=== PATIENT | male | born 1960 | race Caucasian/White ===

== ENCOUNTER 2017-05-14 19:46 | Inpatient (IN) | payer OTHER ==
[~2017-05-14] VITALS: Ht 175.3 cm; Wt 84.4 kg
--- NOTE | ~2017-05-14 | HC ---
[facility] [place] [address] CONSULTATION Name: JOHNYNEO CA Room #: 409-P ADM IN M.R.#: [id number] Admission: 05/14/17 Attend Phys: Maryjane Guzman Discharge: Date of : 58 Report #: [id number] THIS REPORT FOR: //name// CC: Kadeem Guzman REASON FOR CONSULTATION: I was asked to evaluate concerning left lower extremity wound infection. HISTORY OF PRESENT ILLNESS: The patient is a 56-year-old with chronic pain syndrome with cervical and back pain. 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 He had a fair amount of bleeding. He washed it off as good as he could. He was in a dirty environment with some exposed sewage. He did come home and cleaned it off several times with peroxide. Again, yesterday washed it with peroxide. 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 Noticed increased pain, swelling, and redness, then presented to the emergency room last evening. No fever, chills, or sweats. No other systemic symptoms. Denies any cough, sputum, nausea, vomiting, or diarrhea. He was seen in the emergency room, found to have evidence of cellulitis extending up his calf. No purulent drainage. He has been placed on vancomycin. He has a history of MRSA, right prepatellar bursitis several years ago. ALLERGIES: BACITRACIN, NEOMYCIN, POLYMYXIN, and TETANUS TOXOID. MEDICATIONS: As noted on his MAR, including lithium, diazepam, Seroquel, hydrocodone, and morphine. PAST MEDICAL HISTORY: Chronic pain involving the neck and back, arthritis, rotator cuff repair, kidney stone, bipolar, hyperlipidemia, hypertension, left arm fracture, left neck fracture repair, and history of MRSA. FAMILY HISTORY: Noncontributory. SOCIAL HISTORY: Previous use of recreational drugs, smokes cigarettes, uses alcohol. REVIEW OF SYSTEMS: As noted above. PHYSICAL EXAMINATION: VITAL SIGNS: Afebrile, hemodynamically stable. GENERAL: He is alert and cooperative and pleasant, in no acute distress. CHEST: Clear. HEART: Regular. ABDOMEN: Soft. LEFT GROIN: Unremarkable. EXTREMITIES: Left lower extremity had an eschar with superficial type wound [address] [address] CONSULTATION Name: NEO MCCLAIN Room #: [address] [place] [address] IN M.R.#: [id number] Admission: 05/14/17 Attend Phys: Maryjane Guzman Discharge: Date of : 58 Report #: [id number] over the anterior aspect of his ankle. Mild surrounding erythema. No tenderness at the calf. Mild tenderness in the region. No fluctuance. No increased swelling in the foot. Pulses in the foot were normal. Sensation intact. Good capillary refill. LABORATORY STUDIES: Sodium 140, potassium 4.3, bicarbonate 26, and creatinine 1. Hemoglobin 12.2, white count 7.7, and platelet count 331,000. Sedimentation rate 16. CRP less than 2. Lactate 0.8. X-ray of the ankle unremarkable. IMPRESSION: Left ankle soft tissue injury with a superintendent electric power, now with secondary infection. Staph or strep would be most likely. He is responding to vancomycin. reasonable to switch to oral antibiotics and we will go with Zyvox. We will see how he tolerates first dose today and then proceed from there. The patient does have chronic pain issues and complicated narcotic program. Continue local wound care. <ELECTRONICALLY SIGNED> By: Stan Small MD 05/16/17 1301 [id number] Stan Small MD /nt
[~2017-05-14 19:46] MED LIST: ATORVASTATIN CA40 MG PO; CIPROFLOXACIN500 M1 PO; COLACE100 MG PO; DIAZEPAM 10 MG10 M2 PO; ERYTHROMYCIN E3.5 G3 OPHTHALMIC; FLOMAX0.4 MG PO; HYDROCODON-ACE1 EAC5 PO; HYDROCODONE-APA1 TA1 PO; HYDROXYZINE HCL25 M1 PO; IBUPROFEN 600600 M1 PO; IBUPROFEN 800800 MG PO; KEFLEX500 MG PO; LIDODERM 5%1 PATCH TOP; LITHIUM CARBON300 M3 PO; LITHIUM CARBON300 M7 PO; MEDROLDOSEPACK PO; MS CONTIN 30 MG30 M1 PO; NEURONTIN 300300 M1 PO; NORCO 5-325 TA1 EACH PO; NORFLEX100 MG PO; OXYCONTIN20 M1 PO; OXYCONTIN40 MG PO; PERCOCET 10-321 EACH PO; PERCOCET 5-3251 EACH PO; PHENERGAN 25 MG25 M1 PO; PROPRANOLOL 1010 MG PO; PYRIDIUM200 MG PO; SEROQUEL 100 M100 M1 PO; SEROQUEL 50 MG50 MG PO; ULTRAM 50MG TAB50 MG PO; VALIUM5 MG PO; ZOFRAN ODT4 MG PO
[2017-05-14 19:47] VITALS: BP 129/84
[2017-05-14 21:00] LABS: ABSOLUTE NEUTROPHILS 7.8 thou/uL (1.4-8.2); BASOPHILS 0.4 % (0.0-2.0); EOSINOPHILS 1.3 % (0.0-3.0); HEMOGLOBIN 13.9 gm/dL (14.0-18.0); LYMPHOCYTES 24.5 % (24.0-44.0); MCH 32.9 pg (26.0-34.0); MCHC 34.8 g/dL (28.0-37.0); MCV 94.7 fL (80.0-100.0); MONOCYTES 7.2 % (1.0-8.0); PLATELET COUNT 381 thou/uL (150-400); POLYS 66.6 % (36.0-66.0); RBC 4.22 mil/uL (4.50-6.00); RDW 13.7 % (10.5-14.5); WBC 11.7 thou/uL (4.0-11.0)
[2017-05-14 21:01] LABS: MANUAL DIFF NO
[2017-05-14 21:08] LABS: CALCIUM 9.6 mg/dL (8.5-10.1); POTASSIUM 4.1 mmol/L (3.5-5.1)
[2017-05-14] MEDS ORDERED: MS CONTIN15 MG PO (21:58)
[2017-05-14 22:03] VITALS: BP 116/64
[2017-05-14 22:36] VITALS: BP 116/64
[2017-05-14 22:40] VITALS: BP 183/104
[2017-05-15 00:51] VITALS: BP 124/71
[2017-05-15 04:50] VITALS: BP 100/64
[2017-05-15 07:13] LABS: HEMATOCRIT 35.8 % (42.0-52.0); HEMOGLOBIN 12.2 gm/dL (14.0-18.0); MCH 32.7 pg (26.0-34.0); MCHC 34.2 g/dL (28.0-37.0); MCV 95.6 fL (80.0-100.0); RBC 3.75 mil/uL (4.50-6.00); RDW 13.9 % (10.5-14.5); WBC 7.7 thou/uL (4.0-11.0)
[2017-05-15 07:25] LABS: CALCIUM 8.8 mg/dL (8.5-10.1); POTASSIUM 4.3 mmol/L (3.5-5.1)
[2017-05-15 08:32] VITALS: BP 104/62
[2017-05-15 16:04] VITALS: BP 119/75
[2017-05-15 19:33] VITALS: BP 143/77
[2017-05-16 03:57] VITALS: BP 110/70
[2017-05-16 06:00] LABS: ABSOLUTE NEUTROPHILS 2.6 thou/uL (1.4-8.2); BASOPHILS 0.6 % (0.0-2.0); EOSINOPHILS 2.3 % (0.0-3.0); HEMATOCRIT 39.8 % (42.0-52.0); HEMOGLOBIN 13.5 gm/dL (14.0-18.0); LYMPHOCYTES 39.5 % (24.0-44.0); MCH 32.5 pg (26.0-34.0); MCHC 33.8 g/dL (28.0-37.0); MCV 96.2 fL (80.0-100.0); MONOCYTES 10.7 % (1.0-8.0); PLATELET COUNT 334 thou/uL (150-400); POLYS 46.9 % (36.0-66.0); RBC 4.14 mil/uL (4.50-6.00); RDW 13.6 % (10.5-14.5); WBC 5.5 thou/uL (4.0-11.0)
[2017-05-16 06:07] LABS: CALCIUM 9.5 mg/dL (8.5-10.1); CREATININE 0.9 mg/dL (0.7-1.3); POTASSIUM 4.6 mmol/L (3.5-5.1)
[2017-05-16 06:11] LABS: MANUAL DIFF NO
[2017-05-16 08:00] VITALS: BP 126/71
[2017-05-16 12:29] VITALS: BP 126/71
== END 2017-05-16 13:25 | disposition home or self-care (01) | DRG 603 ==
LOC: ER 19:46 → EROBS 21:32 → 4N 23:13
PROVIDERS: Emergency Medicine; Internal Medicine Endocrinology, Diabetes & Metabolism; Nurse Practitioner Family
DX: L03.116 Cellulitis of left lower limb (principal); M54.9 Dorsalgia, unspecified; F31.9 Bipolar disorder, unspecified; M19.90 Unspecified osteoarthritis, unspecified site; F17.210 Nicotine dependence, cigarettes, uncomplicated; E78.5 Hyperlipidemia, unspecified; G89.29 Other chronic pain; I10 Essential (primary) hypertension; Z87.442 Personal history of urinary calculi; Z79.899 Other long term (current) drug therapy; Z88.1 Allergy status to other antibiotic agents; Z88.8 Allergy status to other drugs, medicaments and biological substances; Z87.81 Personal history of (healed) traumatic fracture
CPT/HCPCS: 10790

== ENCOUNTER 2018-07-12 06:21 | Emergency (ER) | payer OTHER ==
[~2018-07-12] VITALS: Ht 172.7 cm; Wt 81.7 kg
--- NOTE | ~2018-07-12 | EKG ---
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: AKSHAT : 1960 Requested By: Stan Ashley Order Number: [id number] MD: Aldo Christianson Measurements Intervals [place] Rate: 68 P: 65 AK: 152 QRS: 49 QRSD: 105 T: 48 QT: 417 QTc: 444 Interpretive Statements Sinus rhythm RSR' in V1 or V2, probably normal variant Compared to ECG 10/13/2016 17:38:50 no significant change was found Electronically Signed On 07-12-2018 9:21:11 TELEGRAPH DISPATCHER by Aldo Christianson [email or web address] <ELECTRONICALLY SIGNED> By: Aldo Christianson MD, [facility] 07/12/18 0921 D: 11/652 0653 Aldo Christianson MD, FACC /EPI
[~2018-07-12 06:21] MED LIST changes: +MS CONTIN15 MG PO
[2018-07-12 06:41] LABS: BASOPHILS 0.4 % (0.0-2.0); EOSINOPHILS 0.7 % (0.0-3.0); HEMATOCRIT 40.1 % (42.0-52.0); HEMOGLOBIN 13.9 gm/dL (14.0-18.0); LYMPHOCYTES 13.8 % (24.0-44.0); MCH 32.8 pg (26.0-34.0); MCHC 34.6 g/dL (28.0-37.0); MCV 94.8 fL (80.0-100.0); MONOCYTES 5.9 % (1.0-8.0); PLATELET COUNT 387 thou/uL (150-400); POLYS 79.2 % (36.0-66.0); RBC 4.23 mil/uL (4.50-6.00); WBC 11.3 thou/uL (4.0-11.0)
[2018-07-12 06:53] LABS: ANION GAP 7 mmol/L (7-16); BUN 24 mg/dL (7-18); CALCIUM 9.8 mg/dL (8.5-10.1); CHLORIDE 105 mmol/L (98-107); CO2 28 mmol/L (21-32); CREATININE 1.2 mg/dL (0.7-1.3); GLUCOSE 113 mg/dL (74-106); POTASSIUM 3.6 mmol/L (3.5-5.1); SODIUM 140 mmol/L (136-145)
[2018-07-12 06:56] LABS: APTT 27.2 Seconds (24.5-32.8)
[2018-07-12 07:00] LABS: ALBUMIN 3.8 g/dL (3.4-5.0); SALICYLATE 3.2 mg/dL (2.8-20.0); SGOT 28 U/L (15-37); SGPT 49 U/L (30-65); TOTAL BILIRUBIN 0.5 mg/dL (<0.1-1.0); TOTAL PROTEIN 7.4 g/dL (6.4-8.2)
[2018-07-12 07:06] LABS: AMP/METHAMP POSITIVE (Negative); BARBITURATES Negative (Negative); BENZODIAZEPINES POSITIVE (Negative); COCAINE POSITIVE (Negative); METHADONE Negative (Negative); OPIATES POSITIVE (Negative); PCP Negative (Negative)
[2018-07-12 07:13] LABS: URINE BILIRUBIN NEGATIVE (Negative); URINE BLOOD 1+ (Negative); URINE CLARITY CLEAR; URINE COLOR YELLOW; URINE GLUCOSE-RANDOM* NEGATIVE (Negative); URINE KETONES NEGATIVE (Negative); URINE LEUKOCYTES NEGATIVE (Negative); URINE NITRITE NEGATIVE (Negative); URINE PROTEIN (DIPSTICK) NEGATIVE (Negative); URINE SPECIFIC GRAVITY 1.025 (1.005-1.035); URINE UROBILINOGEN 0.2 E.U./dl (0.2-1.0)
[2018-07-12 07:21] LABS: CASTS None Seen /LPF (None Seen); SQUAMOUS 0-3 Few /LPF (0-3)
[2018-07-12 07:22] LABS: BACTERIA None Seen /HPF (None Seen); CRYSTALS None Seen /LPF (None Seen); URINE RBC 3-10 Few /HPF (0-2); URINE WBC 0-5 Rare /HPF (0-5)
[2018-07-12 08:30] VITALS: BP 108/67
== END 2018-07-12 09:32 | disposition home or self-care (01) ==
LOC: ER 06:21
PROVIDERS: Emergency Medicine
DX: S20.219A Contusion of unspecified front wall of thorax, initial encounter (principal); F14.10 Cocaine abuse, uncomplicated; F15.10 Other stimulant abuse, uncomplicated; F11.90 Opioid use, unspecified, uncomplicated; G89.4 Chronic pain syndrome; I10 Essential (primary) hypertension; E78.5 Hyperlipidemia, unspecified; V89.2XXA Person injured in unspecified motor-vehicle accident, traffic, initial encounter; Y92.89 Other specified places as the place of occurrence of the external cause; Y93.89 Activity, other specified; Y99.8 Other external cause status

== ENCOUNTER 2018-07-13 11:40 | Emergency (ER) | payer OTHER ==
[~2018-07-13] VITALS: Ht 175.3 cm; Wt 82.6 kg
[2018-07-13 13:00] VITALS: BP 122/71
== END 2018-07-13 13:00 | disposition home or self-care (01) ==
LOC: ER 11:40
DX: G89.29 Other chronic pain (principal); Z76.0 Encounter for issue of repeat prescription; F17.210 Nicotine dependence, cigarettes, uncomplicated; M54.9 Dorsalgia, unspecified; I10 Essential (primary) hypertension; E78.5 Hyperlipidemia, unspecified; F31.9 Bipolar disorder, unspecified; M19.90 Unspecified osteoarthritis, unspecified site; Z98.890 Other specified postprocedural states; Z88.1 Allergy status to other antibiotic agents; Z88.8 Allergy status to other drugs, medicaments and biological substances; Z88.7 Allergy status to serum and vaccine

== ENCOUNTER 2018-07-28 15:36 | Emergency (ER) | payer OTHER ==
[~2018-07-28] VITALS: Ht 175.3 cm; Wt 81.7 kg
--- NOTE | ~2018-07-28 | EKG ---
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 : 1960 Requested By: Minh Leon Order Number: [id number] MD: Aldo Christianson Measurements Intervals [place] Rate: 65 P: 48 [place]: 139 QRS: 36 QRSD: 101 T: 70 QT: 389 QTc: 405 Interpretive Statements Sinus rhythm RSR' in V1 or V2, probably normal variant Repolarization abnormality Compared to ECG 07/12/2018 06:53:12 No significant change was found Electronically Signed On 07-29-2018 7:49:44 WELDING MACHINE OPERATOR ELECTRON BEAM by Aldo Christianson [email or web address] <ELECTRONICALLY SIGNED> By: Aldo Christianson MD, [facility] 07/29/18 0749 1655 165 Aldo Christianson MD, [facility] /EPI
[2018-07-28] MEDS ORDERED: FLOMAX0.4 MG PO (15:50)
[2018-07-28] MEDS ORDERED: LIDODERM1 EACH TOP (17:17)
[2018-07-28 17:27] VITALS: BP 114/83
== END 2018-07-28 17:28 | disposition home or self-care (01) ==
LOC: ER 15:36
DX: S20.211A Contusion of right front wall of thorax, initial encounter (principal); F17.210 Nicotine dependence, cigarettes, uncomplicated; G89.29 Other chronic pain; M54.9 Dorsalgia, unspecified; I10 Essential (primary) hypertension; E78.5 Hyperlipidemia, unspecified; F31.9 Bipolar disorder, unspecified; M19.90 Unspecified osteoarthritis, unspecified site; Z88.1 Allergy status to other antibiotic agents; Z88.7 Allergy status to serum and vaccine; Z88.8 Allergy status to other drugs, medicaments and biological substances; Z87.442 Personal history of urinary calculi; V89.2XXA Person injured in unspecified motor-vehicle accident, traffic, initial encounter; Y92.89 Other specified places as the place of occurrence of the external cause; Y93.89 Activity, other specified; Y99.8 Other external cause status

== ENCOUNTER 2019-01-28 20:59 | Emergency (ER) | payer OTHER ==
[~2019-01-28] VITALS: Ht 170.2 cm; Wt 79.4 kg
[2019-01-28 22:19] VITALS: BP 137/91
== END 2019-01-28 22:45 | disposition home or self-care (01) ==
LOC: ER 20:59
DX: S80.12XA Contusion of left lower leg, initial encounter (principal); G89.29 Other chronic pain; I10 Essential (primary) hypertension; E78.5 Hyperlipidemia, unspecified; M19.90 Unspecified osteoarthritis, unspecified site; F17.210 Nicotine dependence, cigarettes, uncomplicated; Z87.442 Personal history of urinary calculi; Z86.14 Personal history of Methicillin resistant Staphylococcus aureus infection; Z88.1 Allergy status to other antibiotic agents; Z88.7 Allergy status to serum and vaccine; W11.XXXA Fall on and from ladder, initial encounter; Y93.89 Activity, other specified; Y92.89 Other specified places as the place of occurrence of the external cause; Y99.8 Other external cause status

== ENCOUNTER 2019-08-01 12:56 | Emergency (ER) | payer OTHER ==
[~2019-08-01] VITALS: Ht 175.3 cm; Wt 81.7 kg
[~2019-08-01 12:56] MED LIST changes: +LIDODERM1 EACH TOP
[2019-08-01 15:02] LABS: ABSOLUTE NEUTROPHILS 5.8 thou/uL (1.4-8.2); BASOPHILS 0.6 % (0.0-2.0); EOSINOPHILS 0.8 % (0.0-3.0); HEMATOCRIT 34.9 % (42.0-52.0); HEMOGLOBIN 11.9 gm/dL (14.0-18.0); MCH 32.5 pg (26.0-34.0); MCV 95.6 fL (80.0-100.0); MONOCYTES 9.8 % (1.0-8.0); PLATELET COUNT 478 thou/uL (150-400); POLYS 68.8 % (36.0-66.0); RBC 3.65 mil/uL (4.50-6.00); RDW 13.9 % (10.5-14.5); WBC 8.4 thou/uL (4.0-11.0)
[2019-08-01 15:21] LABS: CREATININE 0.9 mg/dL (0.7-1.3); POTASSIUM 4.1 mmol/L (3.5-5.1)
[2019-08-01 15:26] LABS: CALCIUM 9.4 mg/dL (8.5-10.1)
[2019-08-01] MEDS ORDERED: ULTRAM 50MG TAB50 MG PO (16:18)
[2019-08-01 16:39] VITALS: BP 119/79
== END 2019-08-01 16:39 | disposition home or self-care (01) ==
LOC: ER 12:56
PROVIDERS: Emergency Medicine Emergency Medical Services
DX: M17.0 Bilateral primary osteoarthritis of knee (principal); I10 Essential (primary) hypertension; E78.5 Hyperlipidemia, unspecified; M54.9 Dorsalgia, unspecified; G89.29 Other chronic pain; F31.9 Bipolar disorder, unspecified; F17.210 Nicotine dependence, cigarettes, uncomplicated; Z87.442 Personal history of urinary calculi; Z88.1 Allergy status to other antibiotic agents; Z88.7 Allergy status to serum and vaccine

== ENCOUNTER 2019-11-28 14:24 | Emergency (ER) | payer MEDICARE ==
[~2019-11-28] VITALS: Ht 175.3 cm; Wt 81.7 kg
[2019-11-28 15:40] LABS: ABSOLUTE NEUTROPHILS 3.3 thou/uL (1.4-8.2); BASOPHILS 0.3 % (0.0-2.0); EOSINOPHILS 1.4 % (0.0-3.0); HEMATOCRIT 36.7 % (42.0-52.0); HEMOGLOBIN 12.4 gm/dL (14.0-18.0); LYMPHOCYTES 35.3 % (24.0-44.0); MCH 32.4 pg (26.0-34.0); MCHC 33.8 g/dL (28.0-37.0); MCV 95.9 fL (80.0-100.0); MONOCYTES 9.2 % (1.0-8.0); PLATELET COUNT 384 thou/uL (150-400); POLYS 53.8 % (36.0-66.0); RBC 3.83 mil/uL (4.50-6.00); RDW 14.6 % (10.5-14.5); WBC 6.1 thou/uL (4.0-11.0)
[2019-11-28 15:50] LABS: CALCIUM 9.5 mg/dL (8.5-10.1); CREATININE 0.9 mg/dL (0.7-1.3); POTASSIUM 4.1 mmol/L (3.5-5.1)
[2019-11-28 15:56] LABS: ALBUMIN 3.3 g/dL (3.4-5.0); TOTAL BILIRUBIN 0.4 mg/dL (<0.1-1.0); TOTAL PROTEIN 6.9 g/dL (6.4-8.2); URIC ACID* 6.9 mg/dL (2.6-7.2)
[2019-11-28] MEDS ORDERED: VOLTAREN GEL 1100 G2 TOP (16:26)
[2019-11-28 16:49] VITALS: BP 133/84
== END 2019-11-28 16:49 | disposition home or self-care (01) ==
LOC: ER 14:24
PROVIDERS: Physician Assistant
DX: M25.462 Effusion, left knee (principal); M25.562 Pain in left knee; I10 Essential (primary) hypertension; E78.5 Hyperlipidemia, unspecified; M19.90 Unspecified osteoarthritis, unspecified site; F17.210 Nicotine dependence, cigarettes, uncomplicated; Z79.899 Other long term (current) drug therapy; Z88.1 Allergy status to other antibiotic agents; Z88.7 Allergy status to serum and vaccine

== ENCOUNTER 2019-12-29 20:42 | Emergency (ER) | payer MEDICARE ==
[~2019-12-29] VITALS: Ht 175.3 cm; Wt 81.7 kg
[~2019-12-29 20:42] MED LIST changes: +VOLTAREN GEL 1100 G2 TOP
[2019-12-29 22:10] VITALS: BP 158/96
== END 2019-12-29 22:10 | disposition home or self-care (01) ==
LOC: ER 20:42
DX: S42.002A Fracture of unspecified part of left clavicle, initial encounter for closed fracture (principal); G89.29 Other chronic pain; I10 Essential (primary) hypertension; E78.5 Hyperlipidemia, unspecified; M19.90 Unspecified osteoarthritis, unspecified site; M79.661 Pain in right lower leg; M54.2 Cervicalgia; M79.662 Pain in left lower leg; F17.210 Nicotine dependence, cigarettes, uncomplicated; Z87.442 Personal history of urinary calculi; Z98.890 Other specified postprocedural states; Z86.19 Personal history of other infectious and parasitic diseases; Z79.899 Other long term (current) drug therapy; Z88.1 Allergy status to other antibiotic agents; Z88.7 Allergy status to serum and vaccine; V17.4XXA Pedal cycle driver injured in collision with fixed or stationary object in traffic accident, initial encounter; Y93.89 Activity, other specified; Y92.89 Other specified places as the place of occurrence of the external cause; Y99.8 Other external cause status

== ENCOUNTER 2019-12-31 14:46 | Emergency (ER) | payer MEDICARE ==
[~2019-12-31] VITALS: Ht 175.3 cm; Wt 81.7 kg
[2019-12-31 18:01] LABS: BF NUCLEATED CELLS 1185; BF RBC 69056
[2019-12-31 18:02] LABS: CLARITY CLOUDY; COLOR RED; TOTAL VOLUME 5 mL
[2019-12-31 18:50] LABS: BF CRYSTALS CPPD Crystals
[2019-12-31 18:51] LABS: SOURCE KNEE JOINT
[2019-12-31 19:03] LABS: BF MACROPHAGE 8; BF NEUTROPHILS 82; SOURCE KNEE JOINT
[2019-12-31] MEDS ORDERED: NAPRELAN375 MG PO (19:15)
[2019-12-31 19:30] VITALS: BP 95/60
== END 2019-12-31 19:46 | disposition home or self-care (01) ==
LOC: ER 14:46
PROVIDERS: Emergency Medicine Emergency Medical Services
DX: M25.462 Effusion, left knee (principal); M25.561 Pain in right knee; M25.562 Pain in left knee; G89.29 Other chronic pain; I10 Essential (primary) hypertension; M19.90 Unspecified osteoarthritis, unspecified site; F17.210 Nicotine dependence, cigarettes, uncomplicated; Z79.899 Other long term (current) drug therapy; Z88.1 Allergy status to other antibiotic agents; Z88.7 Allergy status to serum and vaccine; Z87.442 Personal history of urinary calculi

== ENCOUNTER 2020-01-24 11:11 | Emergency (ER) | payer MEDICARE ==
[~2020-01-24] VITALS: Ht 175.3 cm; Wt 81.7 kg
[~2020-01-24 11:11] MED LIST changes: +NAPRELAN375 MG PO
[2020-01-24 11:31] LABS: URINE BILIRUBIN NEGATIVE (Negative); URINE BLOOD NEGATIVE (Negative); URINE CLARITY CLEAR; URINE COLOR YELLOW; URINE GLUCOSE-RANDOM* NEGATIVE (Negative); URINE KETONES NEGATIVE (Negative); URINE LEUKOCYTES-REFLEX NEGATIVE (Negative); URINE NITRITE-REFLEX NEGATIVE (Negative); URINE PROTEIN (DIPSTICK) NEGATIVE (Negative); URINE UROBILINOGEN 0.2 E.U./dl (0.2-1.0)
[2020-01-24 11:44] LABS: BASOPHILS 1.1 % (0.0-2.0); EOSINOPHILS 2.1 % (0.0-3.0); HEMATOCRIT 37.6 % (42.0-52.0); HEMOGLOBIN 12.8 gm/dL (14.0-18.0); LYMPHOCYTES 30.9 % (24.0-44.0); MCH 32.6 pg (26.0-34.0); MCHC 34.1 g/dL (28.0-37.0); MCV 95.6 fL (80.0-100.0); MONOCYTES 10.9 % (1.0-8.0); PLATELET COUNT 439 thou/uL (150-400); RBC 3.94 mil/uL (4.50-6.00); RDW 13.9 % (10.5-14.5); WBC 7.3 thou/uL (4.0-11.0)
[2020-01-24 12:02] LABS: CREATININE 1.1 mg/dL (0.7-1.3); POTASSIUM 4.3 mmol/L (3.5-5.1)
[2020-01-24 12:08] LABS: ALBUMIN 3.4 g/dL (3.4-5.0); TOTAL BILIRUBIN 0.3 mg/dL (0.2-1.0); TOTAL PROTEIN 7.1 g/dL (6.4-8.2)
[2020-01-24] MEDS ORDERED: HYDROCODON-ACE1 EAC5 PO (12:44)
[2020-01-24 13:02] VITALS: BP 114/69
== END 2020-01-24 13:02 | disposition home or self-care (01) ==
LOC: ER 11:11
PROVIDERS: Emergency Medicine
DX: M25.562 Pain in left knee (principal); M54.9 Dorsalgia, unspecified; R31.9 Hematuria, unspecified; M19.90 Unspecified osteoarthritis, unspecified site; E78.5 Hyperlipidemia, unspecified; G89.29 Other chronic pain; I10 Essential (primary) hypertension; F17.210 Nicotine dependence, cigarettes, uncomplicated; Z87.442 Personal history of urinary calculi; Z79.899 Other long term (current) drug therapy; Z88.1 Allergy status to other antibiotic agents; Z88.7 Allergy status to serum and vaccine

== ENCOUNTER 2020-11-28 03:10 | Emergency (ER) | payer MEDICARE ==
[~2020-11-28] VITALS: Ht 175.3 cm; Wt 90.7 kg
[2020-11-28 04:31] LABS: URINE BILIRUBIN NEGATIVE (Negative); URINE BLOOD TRACE (Negative); URINE CLARITY CLOUDY; URINE COLOR YELLOW; URINE GLUCOSE-RANDOM* NEGATIVE (Negative); URINE KETONES NEGATIVE (Negative); URINE PROTEIN (DIPSTICK) NEGATIVE (Negative); URINE UROBILINOGEN 0.2 E.U./dl (0.2-1.0)
[2020-11-28 04:37] LABS: URINE LEUKOCYTES-REFLEX 2+ (Negative); URINE NITRITE-REFLEX POSITIVE (Negative)
[2020-11-28] MEDS ORDERED: KEFLEX500 M1 PO (05:19)
[2020-11-28 05:20] LABS: CASTS None Seen /LPF (None Seen); CRYSTALS None Seen /LPF (None Seen); MUCUS 4-6 Moderate strn/LPF (None Seen); SQUAMOUS 0-3 Few /LPF (0-3); URINE RBC 0-2 Rare /HPF (0-2); URINE WBC-REFLEX >25 Many /HPF (0-5); WBC CLUMPS Moderate (None Seen)
[2020-11-28 05:40] VITALS: BP 144/82
== END 2020-11-28 05:41 | disposition home or self-care (01) ==
LOC: ER 03:10
PROVIDERS: Emergency Medicine
DX: N39.0 Urinary tract infection, site not specified (principal); G89.29 Other chronic pain; I10 Essential (primary) hypertension; E78.5 Hyperlipidemia, unspecified; M19.90 Unspecified osteoarthritis, unspecified site; F17.210 Nicotine dependence, cigarettes, uncomplicated; F15.90 Other stimulant use, unspecified, uncomplicated; Z88.1 Allergy status to other antibiotic agents; Z88.7 Allergy status to serum and vaccine; Z87.442 Personal history of urinary calculi; Z98.890 Other specified postprocedural states

== ENCOUNTER 2021-01-05 07:31 | Emergency (ER) | payer MEDICARE ==
[~2021-01-05] VITALS: Ht 175.3 cm; Wt 90.1 kg
[~2021-01-05 07:31] MED LIST changes: +KEFLEX500 M1 PO
[2021-01-05 08:27] LABS: URINE BILIRUBIN NEGATIVE (Negative); URINE BLOOD 2+ (Negative); URINE CLARITY CLEAR; URINE COLOR YELLOW; URINE GLUCOSE-RANDOM* NEGATIVE (Negative); URINE KETONES NEGATIVE (Negative); URINE LEUKOCYTES-REFLEX NEGATIVE (Negative); URINE NITRITE-REFLEX NEGATIVE (Negative); URINE PROTEIN (DIPSTICK) NEGATIVE (Negative)
[2021-01-05 08:36] LABS: CASTS None Seen /LPF (None Seen); CRYSTALS None Seen /LPF (None Seen); SQUAMOUS None Seen /LPF (0-3)
[2021-01-05 08:37] LABS: BACTERIA-REFLEX None Seen /HPF (None Seen); URINE WBC-REFLEX 0-5 Rare /HPF (0-5)
[2021-01-05] MEDS ORDERED: ULTRAM 50MG TAB50 MG PO (08:41)
[2021-01-05 08:45] VITALS: BP 127/92
== END 2021-01-05 08:58 | disposition home or self-care (01) ==
LOC: ER 07:31
PROVIDERS: Emergency Medicine
DX: R10.31 Right lower quadrant pain (principal); M25.571 Pain in right ankle and joints of right foot; R31.9 Hematuria, unspecified; N50.811 Right testicular pain; I10 Essential (primary) hypertension; E78.5 Hyperlipidemia, unspecified; F31.9 Bipolar disorder, unspecified; M19.90 Unspecified osteoarthritis, unspecified site; F17.210 Nicotine dependence, cigarettes, uncomplicated; Z86.14 Personal history of Methicillin resistant Staphylococcus aureus infection; Z87.442 Personal history of urinary calculi; Z98.890 Other specified postprocedural states; Z79.2 Long term (current) use of antibiotics; Z79.899 Other long term (current) drug therapy; Z88.1 Allergy status to other antibiotic agents; Z88.7 Allergy status to serum and vaccine

== ENCOUNTER 2021-03-23 05:49 | Emergency (ER) | payer MEDICARE ==
[~2021-03-23] VITALS: Ht 175.3 cm; Wt 87.1 kg
[2021-03-23 07:09] LABS: BASOPHILS 0.4 % (0.0-2.0); EOSINOPHILS 0.8 % (0.0-3.0); HEMATOCRIT 51.2 % (42.0-52.0); HEMOGLOBIN 17.1 gm/dL (14.0-18.0); LYMPHOCYTES 12.2 % (24.0-44.0); MCH 32.2 pg (26.0-34.0); MCHC 33.5 g/dL (28.0-37.0); MCV 96.1 fL (80.0-100.0); MONOCYTES 7.9 % (1.0-8.0); PLATELET COUNT 623 thou/uL (150-400); POLYS 78.7 % (36.0-66.0); RBC 5.33 mil/uL (4.50-6.00); RDW 14.7 % (10.5-14.5); WBC 16.6 thou/uL (4.0-11.0)
[2021-03-23 07:46] LABS: ANION GAP 5 mmol/L (7-16); BUN 17 mg/dL (7-18); CALCIUM 9.6 mg/dL (8.5-10.1); CHLORIDE 99 mmol/L (98-107); CO2 29 mmol/L (21-32); CREATININE 1.4 mg/dL (0.7-1.3); GLUCOSE 119 mg/dL (74-106); POTASSIUM 4.9 mmol/L (3.5-5.1); SODIUM 133 mmol/L (136-145)
[2021-03-23 07:48] LABS: URINE BILIRUBIN NEGATIVE (Negative); URINE BLOOD 2+ (Negative); URINE CLARITY SL CLOUDY; URINE COLOR YELLOW; URINE GLUCOSE-RANDOM* NEGATIVE (Negative); URINE KETONES NEGATIVE (Negative); URINE PROTEIN (DIPSTICK) NEGATIVE (Negative); URINE UROBILINOGEN 0.2 E.U./dl (0.2-1.0)
[2021-03-23 07:49] LABS: URINE LEUKOCYTES-REFLEX 1+ (Negative); URINE NITRITE-REFLEX POSITIVE (Negative)
[2021-03-23 07:56] LABS: ALBUMIN 3.3 g/dL (3.4-5.0); SGOT 30 U/L (15-37); SGPT 35 U/L (16-63); TOTAL BILIRUBIN 0.4 mg/dL (0.2-1.0); TOTAL PROTEIN 7.9 g/dL (6.4-8.2); TROPONIN-I <0.06 ng/mL (<0.06)
[2021-03-23 09:09] LABS: CASTS None Seen /LPF (None Seen); MUCUS 4-6 Moderate strn/LPF (None Seen); SQUAMOUS 0-3 Few /LPF (0-3)
[2021-03-23 09:11] LABS: BACTERIA-REFLEX >30 Many /HPF (None Seen); CRYSTALS None Seen /LPF (None Seen); URINE RBC 3-10 Few /HPF (NONE SEEN)
--- NOTE | 2021-03-23 09:23 | EKG ---
[facility] [employer] [place] [address] ELECTROCARDIOGRAM REPORT Name: NEO MCCLAIN [facility] #: [facility] [id number] Admission: 03/23/21 Attend Phys: Discharge: Date of : 58 Report #: [id number] 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 : 1960 Requested By: Connor Galvan Order Number: [id number] MD: Tavon Templeton Measurements Intervals [place] Rate: 81 P: 49 HI: 148 QRS: -9 QRSD: 100 T: 24 QT: 367 QTc: 426 Interpretive Statements Sinus rhythm Probable left ventricular hypertrophy Compared to ECG 07/28/2018 16:55:21 ST (T wave) deviation now present Early repolarization no longer present Electronically Signed On 03-23-2021 9:23:14 CDT by Tavon Templeton [email or web address] <ELECTRONICALLY SIGNED> By: Tavon Templeton MD, [facility] 03/23/21 0923 [phone] Tavon Templeton MD, FACC /EPI
[2021-03-23] MEDS ORDERED: DOXYCYCLINE 10100 MG PO (10:06)
[2021-03-23 10:11] VITALS: BP 132/91
== END 2021-03-23 10:11 ==
LOC: ER 05:49
PROVIDERS: Emergency Medicine
DX: N41.9 Inflammatory disease of prostate, unspecified (principal); J18.9 Pneumonia, unspecified organism; I10 Essential (primary) hypertension; E78.5 Hyperlipidemia, unspecified; M19.90 Unspecified osteoarthritis, unspecified site; F17.210 Nicotine dependence, cigarettes, uncomplicated; Z79.2 Long term (current) use of antibiotics; Z79.899 Other long term (current) drug therapy; Z88.1 Allergy status to other antibiotic agents

== ENCOUNTER 2021-05-02 17:59 | Emergency (ER) | payer MEDICARE ==
[~2021-05-02] VITALS: Ht 175.3 cm; Wt 85.3 kg
[~2021-05-02 17:59] MED LIST changes: +DOXYCYCLINE 10100 MG PO
[2021-05-02 19:41] LABS: ABSOLUTE NEUTROPHILS 13.7 thou/uL (1.4-8.2); BASOPHILS 0.2 % (0.0-2.0); EOSINOPHILS 0.1 % (0.0-3.0); HEMATOCRIT 46.5 % (42.0-52.0); HEMOGLOBIN 15.4 gm/dL (14.0-18.0); MCH 31.2 pg (26.0-34.0); MCV 94.4 fL (80.0-100.0); MONOCYTES 6.7 % (1.0-8.0); PLATELET COUNT 388 thou/uL (150-400); RBC 4.93 mil/uL (4.50-6.00); WBC 16.1 thou/uL (4.0-11.0)
[2021-05-02 19:46] LABS: CALCIUM 9.4 mg/dL (8.5-10.1); CREATININE 1.5 mg/dL (0.7-1.3); POTASSIUM 4.1 mmol/L (3.5-5.1)
[2021-05-02 19:51] LABS: ALBUMIN 3.6 g/dL (3.4-5.0); TOTAL BILIRUBIN 1.1 mg/dL (0.2-1.0); TOTAL PROTEIN 7.5 g/dL (6.4-8.2)
[2021-05-02] MEDS ORDERED: BACTRIM DS TAB1 EACH PO (19:56)
[2021-05-02 20:23] VITALS: BP 116/75
[2021-05-03] MEDS ORDERED: BACTRIM DS TAB1 EACH PO (12:53)
== END 2021-05-02 20:23 | disposition home or self-care (01) ==
LOC: ER 17:59
PROVIDERS: Emergency Medicine
DX: L03.114 Cellulitis of left upper limb (principal); I10 Essential (primary) hypertension; E78.00 Pure hypercholesterolemia, unspecified; F31.9 Bipolar disorder, unspecified; M19.90 Unspecified osteoarthritis, unspecified site; F17.210 Nicotine dependence, cigarettes, uncomplicated; Z87.442 Personal history of urinary calculi; Z79.891 Long term (current) use of opiate analgesic; Z79.899 Other long term (current) drug therapy; Z88.1 Allergy status to other antibiotic agents; Z88.7 Allergy status to serum and vaccine

== ENCOUNTER 2021-06-13 19:44 | Emergency (ER) | payer MEDICARE ==
[~2021-06-13] VITALS: Ht 177.8 cm; Wt 79.4 kg
[~2021-06-13 19:44] MED LIST changes: +BACTRIM DS TAB1 EACH PO
[2021-06-13 20:24] LABS: EOSINOPHILS 1.8 % (0.0-3.0); HEMATOCRIT 38.3 % (42.0-52.0); LYMPHOCYTES 27.5 % (24.0-44.0); MCH 31.6 pg (26.0-34.0); MCHC 34.1 g/dL (28.0-37.0); MCV 92.7 fL (80.0-100.0); MONOCYTES 8.3 % (1.0-8.0); PLATELET COUNT 546 thou/uL (150-400); POLYS 61.4 % (36.0-66.0); RBC 4.13 mil/uL (4.50-6.00); RDW 15.3 % (10.5-14.5); WBC 8.2 thou/uL (4.0-11.0)
[2021-06-13 20:34] LABS: CALCIUM 8.9 mg/dL (8.5-10.1); CREATININE 1.2 mg/dL (0.7-1.3)
[2021-06-13 20:37] LABS: POTASSIUM 4.9 mmol/L (3.5-5.1)
[2021-06-13 20:41] LABS: ALBUMIN 2.9 g/dL (3.4-5.0); TOTAL BILIRUBIN 0.4 mg/dL (0.2-1.0)
[2021-06-13 21:57] LABS: URINE BILIRUBIN NEGATIVE (Negative); URINE BLOOD NEGATIVE (Negative); URINE CLARITY CLEAR; URINE COLOR YELLOW; URINE GLUCOSE-RANDOM* NEGATIVE (Negative); URINE KETONES NEGATIVE (Negative); URINE NITRITE-REFLEX NEGATIVE (Negative); URINE PROTEIN (DIPSTICK) NEGATIVE (Negative); URINE UROBILINOGEN 0.2 E.U./dl (0.2-1.0)
[2021-06-13 22:28] LABS: URINE LEUKOCYTES-REFLEX 1+ (Negative)
[2021-06-13 22:34] LABS: CASTS None Seen /LPF (None Seen); MUCUS None Seen strn/LPF (None Seen); SQUAMOUS None Seen /LPF (0-3)
[2021-06-13 22:35] LABS: BACTERIA-REFLEX 1-9 Few /HPF (None Seen)
[2021-06-13 22:36] LABS: CRYSTALS None Seen /LPF (None Seen); URINE RBC None Seen /HPF (NONE SEEN); URINE WBC-REFLEX 0-5 Rare /HPF (0-5)
[2021-06-13] MEDS ORDERED: FLEXERIL PO (22:43)
[2021-06-13 22:58] VITALS: BP 104/74
[2021-06-16] MEDS ORDERED: CEFUROXIME500 MG PO (07:45)
== END 2021-06-13 22:59 | disposition home or self-care (01) ==
LOC: ER 19:44
PROVIDERS: Emergency Medicine
DX: M62.830 Muscle spasm of back (principal); M54.50 Low back pain, unspecified; I10 Essential (primary) hypertension; E78.5 Hyperlipidemia, unspecified; M19.90 Unspecified osteoarthritis, unspecified site; F17.210 Nicotine dependence, cigarettes, uncomplicated; Z79.899 Other long term (current) drug therapy; Z88.8 Allergy status to other drugs, medicaments and biological substances

== ENCOUNTER 2021-10-01 01:01 | Emergency (ER) | payer MEDICARE ==
[~2021-10-01] VITALS: Ht 177.8 cm; Wt 95.3 kg
[~2021-10-01 01:01] MED LIST changes: +CEFUROXIME500 MG PO; +FLEXERIL PO
[2021-10-01 03:04] LABS: ABSOLUTE NEUTROPHILS 7.2 thou/uL (1.4-8.2); BASOPHILS 0.5 % (0.0-2.0); CREATININE 0.8 mg/dL (0.7-1.3); EOSINOPHILS 0.6 % (0.0-3.0); HEMATOCRIT 40.9 % (42.0-52.0); HEMOGLOBIN 13.9 gm/dL (14.0-18.0); LYMPHOCYTES 19.8 % (24.0-44.0); MCV 93.9 fL (80.0-100.0); MONOCYTES 8.6 % (1.0-8.0); PLATELET COUNT 455 thou/uL (150-400); POLYS 70.5 % (36.0-66.0); POTASSIUM 4.6 mmol/L (3.5-5.1); RBC 4.35 mil/uL (4.50-6.00); RDW 14.1 % (10.5-14.5); WBC 10.2 thou/uL (4.0-11.0)
[2021-10-01 03:11] LABS: ALBUMIN 3.3 g/dL (3.4-5.0); TOTAL BILIRUBIN 0.3 mg/dL (0.2-1.0); TOTAL PROTEIN 6.9 g/dL (6.4-8.2)
[2021-10-01 05:38] LABS: URINE BILIRUBIN NEGATIVE (Negative); URINE BLOOD NEGATIVE (Negative); URINE CLARITY CLEAR; URINE COLOR YELLOW; URINE GLUCOSE-RANDOM* NEGATIVE (Negative); URINE KETONES NEGATIVE (Negative); URINE LEUKOCYTES-REFLEX NEGATIVE (Negative); URINE NITRITE-REFLEX NEGATIVE (Negative); URINE PROTEIN (DIPSTICK) NEGATIVE (Negative); URINE SPECIFIC GRAVITY 1.025 (1.005-1.035); URINE UROBILINOGEN 0.2 E.U./dl (0.2-1.0)
[2021-10-01 06:25] VITALS: BP 146/74
--- NOTE | 2021-10-01 08:02 | EKG ---
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 : 1960 Requested By: Connor Galavn Order Number: [id number] MD: Aldo Christianson Measurements Intervals [place] Rate: 89 P: 71 [place]: 141 QRS: 13 QRSD: 100 T: 55 QT: 365 QTc: 445 Interpretive Statements Sinus rhythm RSR' in V1 or V2, probably normal variant Compared to ECG 03/23/2021 06:44:29 RSR' in V1 or V2 now present Electronically Signed On 10-01-2021 8:01:57 NEUROLOGY TECHNOLOGIST by Aldo Christianson [email or web address] <ELECTRONICALLY SIGNED> By: Aldo Christianson MD, [facility] 10/01/21 0801 1 1 Aldo Christianson MD, FACC /EPI
== END 2021-10-01 06:15 | disposition home or self-care (01) ==
LOC: ER 01:01
PROVIDERS: Emergency Medicine
DX: R10.9 Unspecified abdominal pain (principal); G89.29 Other chronic pain; R22.2 Localized swelling, mass and lump, trunk; F17.210 Nicotine dependence, cigarettes, uncomplicated; I10 Essential (primary) hypertension; M19.90 Unspecified osteoarthritis, unspecified site; Z88.1 Allergy status to other antibiotic agents; Z88.7 Allergy status to serum and vaccine; Z87.442 Personal history of urinary calculi